=== PATIENT | female | born 1975 ===

== ENCOUNTER 2024-11-20 03:32 | Outpatient (CLI) | payer MEDICAID, SELFPAY ==
--- NOTE | 2024-11-20 | DI.RAD_ITS ---
Exam(s) RF JOINT INJ. FLUORO GUID RAD EXAM: RF JOINT INJ. FLUORO GUID RAD CLINICAL HISTORY: PAIN RT SHOULDER M25.519 RT SHOULDER BICIPITAL GROOVE INJ. The Patient has had persistent right shoulder pain. Noninvasive measures have been tried. To serve as both diagnostic and therapeutic, an injection under fluoroscopy was recommended. The risks of the procedure were discussed with their Orthopedic provider and the patient elected to proceed. TECHNIQUE: 2D and realtime digital imaging was performed. CONTRAST MATERIAL: Water soluble contrast was utilized. COMPARISON: No exams were available for comparison FINDINGS: The Patient was greeted in the fluoroscopy room. The correct side was identified and the consent was reviewed with the patient and was signed. The patient was properly positioned on the fluoroscopy table. The right shoulderwas then prepped and draped. The right shoulder injection starting point was identified by the bony landmarks and fluoroscopy. The skin and soft tissue in the tract of the injection was anesthetized with 0.25% Bupivacaine. A spinal needle was then inserted into the right shoulder joint at the level of the glenohumeral joint under fluoroscopic guidance. A small amount of Omnipaque solution was injected to confirm intraarticular placement. Once confirmed, the right shoulder was injected with 5cc of a solution containing 0.25% Bupivacaine and 40 mg of Depo-Medrol. A bandaid was placed on the injection site. The patient tolerated the procedure well and left the department in good condition. IMPRESSION: Successful right shoulder injection. RADIATION DOSE DELIVERED: Pattyr=4.24 mGy
[2024-11-20] MEDS: Normal Saline - Diluent 50 ML VIAL IJ (11:29)
[2024-11-20] MEDS: Bupivacaine 0.25% Pres-Free 10 ML VIAL IJ (11:30)
[2024-11-20] MEDS: Omnipaque 300 MG/ML 10 ML BTL IJ (11:30)
[2024-11-20] MEDS: methylPREDNISolone ACETATE 40 MG/ML VIAL IM (11:31)
== END 2024-11-20 03:52 ==
LOC: DI 03:32
PROVIDERS: Visit Provider Physician Assistant Surgical
DX: M25.511 Pain in right shoulder (principal)
CPT/HCPCS: 20610; 77002; J0665; J1010